=== PATIENT | male | born 1970 | race Caucasian/White ===

== ENCOUNTER 2019-07-08 16:29 | Emergency (ER) | payer OTHER ==
[~2019-07-08] VITALS: Ht 180.3 cm; Wt 81.6 kg
[2019-07-08 16:58] VITALS: Ht 180.3 cm; Wt 81.6 kg
[2019-07-08 17:56] VITALS: BP 131/95
== END 2019-07-08 17:56 | disposition home or self-care (01) ==
LOC: ED 16:29
DX: G51.0 Bell's palsy (principal)
CPT/HCPCS: J7512